=== PATIENT | male | born 1970 | race Two or more races ===

== ENCOUNTER 2019-05-09 11:21 | Emergency (ER) | payer OTHER ==
[~2019-05-09] VITALS: Ht 177.8 cm; Wt 99.3 kg
[~2019-05-09 11:21] MED LIST: AMOX1TAB12 PO; GILTUSS TR TAB1 EACH PO; METFORMIN HCL500 MG; ZYRTEC10 MG PO
[2019-05-09] MEDS ORDERED: LOSARTAN POTASS50 MG PO (11:38)
[2019-05-09] MEDS ORDERED: FENOFIBRATE PO (11:39)
[2019-05-09] MEDS ORDERED: METFORMIN HCL1000 M2 PO (11:40)
[2019-05-09] MEDS ORDERED: TIROSINT50 MCG PO (11:40)
[2019-05-09] MEDS ORDERED: VISTARIL25 MG PO (14:39)
== END 2019-05-09 14:59 | disposition home or self-care (01) ==
LOC: ER 11:21
DX: R00.2 Palpitations (principal)

== ENCOUNTER 2019-09-13 08:54 | Emergency (ER) | payer OTHER ==
[~2019-09-13] VITALS: Ht 175.3 cm; Wt 97.5 kg
[~2019-09-13 08:54] MED LIST changes: +FENOFIBRATE PO; +LOSARTAN POTASS50 MG PO; +METFORMIN HCL1000 M2 PO; +TIROSINT50 MCG PO; +VISTARIL25 MG PO
== END 2019-09-13 16:44 | disposition home or self-care (01) ==
LOC: ER 08:54
DX: R42 Dizziness and giddiness (principal); R03.0 Elevated blood-pressure reading, without diagnosis of hypertension

== ENCOUNTER 2020-10-30 14:15 | Emergency (ER) | payer OTHER ==
[~2020-10-30] VITALS: Ht 165.1 cm; Wt 85.3 kg
== END 2020-10-30 17:00 | disposition home or self-care (01) ==
LOC: ER 14:15
DX: S61.212A Laceration without foreign body of right middle finger without damage to nail, initial encounter (principal); W26.0XXA Contact with knife, initial encounter; Y93.89 Activity, other specified; Y92.89 Other specified places as the place of occurrence of the external cause; Y99.8 Other external cause status

== ENCOUNTER 2023-02-19 11:04 | Outpatient (CLI) | payer OTHER | END 2023-02-19 11:07 | disposition home or self-care (01) | LOC: SONOGRAMA 11:04 | PROVIDERS: ATTEND Pathology Anatomic Pathology & Clinical Pathology | DX: D34 Benign neoplasm of thyroid gland (principal); E04.9 Nontoxic goiter, unspecified ==

== ENCOUNTER → 2024-05-08 | Emergency (ER) | payer OTHER ==
[~2024-05-08] VITALS: Ht 177.8 cm; Wt 95.3 kg
[~2024-05-08] MED LIST changes: +GLIMEPIRIDE1 MG; +HYZAAR 50-12.51 EACH PO
== END | disposition left against medical advice (07) ==
LOC: ER 19:28
DX: Z53.21 Procedure and treatment not carried out due to patient leaving prior to being seen by health care provider (principal)